=== PATIENT | male | born 1995 | race African-American/Black ===

== ENCOUNTER 2022-06-29 20:40 | Emergency (ER) | payer SELFPAY ==
[2022-06-29] MEDS ORDERED: Ketorolac Tromethamine 30 MG/ML VIAL ONE (21:19)
[2022-06-29] MEDS ORDERED: Metoclopramide HCl 10 MG/2 ML VIAL ONE (21:19)
[2022-06-29] MEDS ORDERED: levETIRAcetam 500 MG TAB PO SCH (21:30)
== END 2022-06-29 22:10 ==
LOC: ERS 20:40 → EEVIPCON 20:40 → ERS 22:10
DX: R56.9 Unspecified convulsions (principal); R51.9 Headache, unspecified
CPT/HCPCS: 93005; J1885; J2765